=== PATIENT | female | born 1985 | race Caucasian/White ===

== ENCOUNTER 2017-10-21 05:01 | Inpatient (IN) | payer BC, OTHER ==
--- NOTE | 2017-10-17 22:47 | HP ---
Chief Complaint - Chief Complaint Date of Service: 10/07/17 Chief Complaint: Repeat C/S History of Present Illness: 31 yo IVF patient at 39 3/7wks with MAGAN of 10/25/17 at time of scheduled c/s on 10/21/17 presents for repeat C/S. This complicated by anemia and prior C/S (declines ). Rh positive Rubella immune GBS positive Medical History (Last Reviewed 10/17/17 @ 22:42 by Kenton Kang DO) Anemia affecting (Acute) Onset Date: 08/25/14 Surgical History: Surgical History (Last Reviewed 10/17/17 @ 22:42 by Kenton Kang DO) Previous section Onset Date: 11/21/14 History of tonsillectomy and adenoidectomy Onset Date: 1998 Family History: Family History (Last Reviewed 10/17/17 @ 22:42 by Kenton Kang DO) Mother Diabetes Father Alive and well Grandfather Polio Grandfather Hypertension Myocardial infarction Grandmother Lymphoma Grandmother Hypertension Social History: Preferred Language Irish Abuse History No History of abuse Psych History No pertinent hx Review Of Systems (GEN) - Review of Systems Generalized/Overall Review: Present: No Symptoms Reported EENTM: Present: No Symptoms Reported Respiratory: Present: No Symptoms Reported Cardiac: Present: No Symptoms Reported Abdominal: Present: No Symptoms Reported Genitourinary: Present: No Symptoms Reported Musculoskeletal: Present: No Symptoms Reported Neurological: Present: No Symptoms Reported Skin: Present: No Symptoms Reported Endocrine: Present: No Symptoms Reported Allergies/Adverse Reactions: Allergies Allergy/AdvReac Type Severity Reaction Status Date / Time Penicillins Allergy Mild Hives Verified 10/14/17 09:39 amoxicillin Allergy Hives Verified 10/14/17 09:39 Home Medications: HOME MEDICATIONS Ferrous Sulfate [Iron] 325 mg PO 11/20/14 [Last Taken 11/19/14] Vits96/Iron Fum/Folic [ S] 1 tab PO DAILY 11/20/14 [Last Taken 11/19/14] breast pump See Dose Instructions .ROUTE .MEDSUPPLY #1 ea 09/29/17 [Last Taken Unknown] Exam - Exam Vital Signs: Vitals from 10/14/17 Ht 1.56m Wt 81.8kg BP 124/76 P83 R16 O2 98% Constitutional: Present: Alert, Oriented x3, Cooperative, No distress ENT Exam: Present: hearing grossly normal Back Exam: Present: no CVA tenderness Breasts: Present: Exam deferred Respiratory: Present: lungs clear, no respiratory distress Cardiovascular/Chest: Present: regular rate, rhythm, edema - 1+ bilateral Lower extremities Abdomen: Present: soft, nontender, no rebound tenderness /Rectal: Present: Exam deferred Extremity: Present: non-tender, no calf tenderness, pedal edema Skin Exam: Present: normal color, warm/dry, no cyanosis Neurologic: Present: alert, normal mood/affect, oriented x 3 Appearance: Present: appropriate appearance, appropriate insight Eye contact: Present: cooperative, good eye contact, normal speech Thoughts: Present: normal thought pattern Assessment/Plan - Assessment/Plan (1) Previous delivery affecting , antepartum Assessment: r/b/a to repeat section reviewed with patient again. All questions answered. Will proceed with repeat c/s as scheduled. Problem: Acute
[2017-10-21] MEDS ORDERED: OXYTOCIN 20 UNITS in RINGER'S SOLUTION,LACTATED 1,000 ML IV ONE (06:00)
[2017-10-21] MEDS ORDERED: RINGER'S SOLUTION,LACTATED 1,000 ML IV PRN ×2 (06:00)
[2017-10-21] MEDS ORDERED: ceFAZolin SODIUM/DEXTROSE,ISO 2 GM/50 ML BAG IV PRN (06:00)
--- NOTE | 2017-10-21 07:49 | ANES ---
Anesthesia Pre Procedure Eval Vitals/Labs: Last Vital Signs Temp 36.7 C 10/21/17 05:54 Pulse 90 10/21/17 05:54 Resp 18 10/21/17 05:54 BP 119/79 10/21/17 05:54 HOME MEDICATIONS Ferrous Sulfate [Iron] 325 mg PO DAILY 11/20/14 [Last Taken 10/20/17] Vits96/Iron Fum/Folic [ S] 1 tab PO DAILY 11/20/14 [Last Taken 10/20/17] breast pump See Dose Instructions .ROUTE .MEDSUPPLY #1 ea 09/29/17 [Last Taken Unknown] Allergies/Adverse Reactions: Allergies Allergy/AdvReac Type Severity Reaction Status Date / Time Penicillins Allergy Mild Hives Verified 10/14/17 09:39 amoxicillin Allergy Hives Verified 10/14/17 09:39 - Planned Procedure Planned Procedure: Repeat Section, poss. Abdominal Scar Rev Medication List Reviewed:: Yes Allergies Verified: Yes Medical History (Last Reviewed 10/21/17 @ 07:48 by Hilario Webber CRNA) Anemia affecting (Acute) Onset Date: 08/25/14 Surgical History (Last Reviewed 10/21/17 @ 07:48 by Hilario Webber CRNA) Previous section Onset Date: 11/21/14 History of tonsillectomy and adenoidectomy Onset Date: 1998 Family History (Last Reviewed 10/21/17 @ 07:48 by Hilario Webber CRNA) Mother Diabetes Father Alive and well Grandfather Pol[place] Grandfather Hypertension Myocardial infarction Grandmother Lymphoma Grandmother Hypertension - Family Anesthesia History Family History:: no untoward family reactions to anesthesia, no familial bleeding tendencies, no family history of clotting disorders, no family history of premature - Airway/Neck/Teeth Within Normal Limits:: Yes Teeth Condition: Intact Mallampatti Score: 1 Thyromental (T-M) distance: > 6 cm Mandibulo Hyoid distance: > 3 cm - Respiratory Respiratory: lungs clear Discussed smoking cessation including day of surgery: No Sleep Apnea currently treated: No Sleep Apnea by current assessment: No Discussed Risks/Treatment of ONIEL: No - Cardiovascular Tolerates Activity: Good Heart Sounds: S1 & S2, Regular - Anesthesia Assessment and Plan ASA Class: PS, II Anesthesia Type Plan: Block - Bilateral TAP blocks for postop analgesia, Spinal
[2017-10-21] MEDS ORDERED: BISACODYL 10 MG SUPP.RECT RC PRN (09:15)
[2017-10-21] MEDS ORDERED: SIMETHICONE 80 MG TAB.CHEW PO PRN (09:15)
[2017-10-21] MEDS ORDERED: oxyCODONE HCL/ACETAMINOPHEN 1 TAB TABLET PO PRN (09:15)
[2017-10-21] MEDS ORDERED: SENNOSIDES 8.6 MG TABLET PO PRN (09:15)
[2017-10-21] MEDS ORDERED: ONDANSETRON HCL/PF 2 MG/ML VIAL IV PRN (09:15)
--- NOTE | 2017-10-21 09:17 | OR ---
Operative Report - Dictated Report Narrative: Indication: 31-year-old at 39-3/7 weeks with prior section desires repeat section status: Planned Pre Operative Diagnosis: 39-3/7 week intrauterine . Prior section. Post Operative Diagnosis: Same. Procedure: Repeat low transverse section. Surgeon: Amber Kang DO Automobile Locator: OR Staff Anesthesia: Spinal, TAP block Estimated Blood Loss: 600 mL Urine Output: 100 mL clear urine Fluids Replacement: 1000 mL Drains: Ventura to gravity Surgical Complications: None Specimens: Placenta to freezer Findings: Male born in cephalic presentation at 0816 on 10/21/2017 with Apgars 9 and 9, weighing 3717 g. Normal uterus, tubes, ovaries Technique: The patient was taken to the operating room and placed in dorsal supine position with a left lateral tilt. After adequate spinal anesthesia, ventura catheter inserted, SCDs placed, and 2 g of Ancef given preoperatively, the abdominal cavity was entered using sharp and blunt dissection. Two rolled laps were placed in the pericolic gutters on either side of the uterus. A transverse incision was made in the lower uterine segment and extended laterally and upwardly with digital traction. Clear fluid was noted upon amniotomy. The infant was delivered easily. The cord was clamped and cut and infant was handed off to awaiting printed circuit board panels developer. The placenta was allowed to deliver spontaneously. The uterus was cleared of clot and debris. Uterine incision was closed with 0 Vicryl using a running stitch. A second imbricating layer was placed. Excellent hemostasis was noted. The rolled laps were removed from the abdominal cavitiy. The peritoneum was closed with a running 3- 0 Monocryl. The same suture was used to approximate the rectus and pyramidalis muscles. The fascia was closed with a running 0 Vicryl. The subcutaneous layer was closed with a running 3-0 Monocryl. The same suture was used to approximate the subdermal layer. The skin was closed with a running 4-0 Monocryl and Dermabond. Sponge, lap, needle, and instrument count were correct x 2. Disposition: To post anesthesia care unit in good condition
--- NOTE | 2017-10-21 09:21 | ANES ---
Post Anesthesia Discharge - Transfer of Care Transfer of Care handoff given to nurse: Yes - Discharge from PACU Discharge from PACU when meets criteria: Yes - Discharge to ASU Discharge to ASU-no complications/pt stable: Yes
--- NOTE | 2017-10-21 09:22 | ANES ---
Anesthesia Procedure Note Procedure Note: ANESTHESIA PROCEDURE NOTE Date of Procedure: 10/21/2017. Time of procedure: 0910. Performed by: Hilario Webber CRNA Ecological Modeler: None. Preprocedure diagnosis: Repeat . Post procedure diagnosis: Same. Procedure: Bilateral ultrasound-guided transversus abdominis plane block for postop analgesia. Indications: The patient is a 31 -year-old female post section, requesting bilateral ultrasound-guided tap block for postoperative analgesia. Findings: See below. Details of the procedure: ChloraPrep was used on the patient's abdomen and the procedure was performed under sterile technique. The right abdominal fascial layer between the internal oblique muscle and the transversus abdominis muscles was identified under ultrasound guidance. A 21-gauge 4 inch block needle was inserted under ultrasound guidance to the target fascial plane. 15 mL's of 0.5 % bupivacaine plus epinephrine 1:200,000 was injected after negative aspiration for blood. The needle was removed intact and the procedure was then repeated at the left side. No complications were noted. The images were retained in the hospital medical database . EBL: Minimal. Fluids: N/A. Specimen: N/A. Post procedure condition: The patient tolerated the procedure well. No complications were noted. Thank you for this consultation. Hilario Webber CRNA
--- NOTE | 2017-10-21 09:35 | ANES ---
Post Anesthesia Assessment - Vital Signs Vitals: Last Vital Signs Temp 36.2 C 10/21/17 09:05 Pulse 89 10/21/17 09:20 Resp 16 10/21/17 09:20 BP 131/76 10/21/17 09:20 Pulse Ox 99 10/21/17 09:20 Airway Patency: Normal - Mental Status Level Of Consciousness: Awake - Pain Level Pain Score: 0 - N/V Assessment Nausea/Vomiting Presence: None Dehydration:: No
[2017-10-21] MEDS: IBUPROFEN 800 MG TABLET PO PRN ×2 (10:56→18:03)
[2017-10-21] MEDS: oxyCODONE HCL/ACETAMINOPHEN 1 TAB TABLET PO PRN ×3 (10:57→22:14)
[2017-10-21] MEDS: ENOXAPARIN SODIUM 40 MG/0.4 ML SYRG SC SCH (17:17)
[2017-10-21] MEDS: DOCUSATE SODIUM 100 MG CAPSULE PO SCH (20:25)
[2017-10-22] MEDS: IBUPROFEN 800 MG TABLET PO PRN ×3 (06:24→21:51)
[2017-10-22] MEDS: oxyCODONE HCL/ACETAMINOPHEN 1 TAB TABLET PO PRN ×3 (06:24→21:51)
[2017-10-22] MEDS: PRENATAL VITS96/IRON FUM/FOLIC 1 TAB TABLET PO SCH (09:43)
[2017-10-22] MEDS: FERROUS SULFATE 325 MG TABLET PO SCH (09:43)
[2017-10-22] MEDS: DOCUSATE SODIUM 100 MG CAPSULE PO SCH ×2 (09:43→21:08)
--- NOTE | 2017-10-22 10:32 | PN ---
Subjective - Date and Time Seen Date: 10/22/17 Time: 10:32 Objective - Vitals Vitals: Last Vital Signs Temp 36.6 C 10/22/17 08:18 Pulse 72 10/22/17 08:18 Resp 18 10/22/17 08:18 BP 115/80 10/22/17 08:18 Pulse Ox 96 10/22/17 08:18 Patient denies complaints. Tolerating regular diet. Ambulating without difficulty. Pain well controlled. Lochia wnl. Abdomen - soft, appropriately tender Incision - clean, dry, intact Uterus - firm, at umbilicus -1 No calf tenderness Impression: Post op day #1 s/p repeat section. Plan: Continue routine post-operative/ care Cauti Physician Documentation - Urinary Catheter Management 2-way Urethral Date of Insertion: 10/21/17 Time of Insertion: 08:00 Assessment/Plan - Problems/Diagnosis (1) Previous delivery affecting , antepartum Problem: Acute
[2017-10-22] MEDS: ENOXAPARIN SODIUM 40 MG/0.4 ML SYRG SC SCH (18:11)
[2017-10-23] MEDS: oxyCODONE HCL/ACETAMINOPHEN 1 TAB TABLET PO PRN ×2 (06:38→16:20)
[2017-10-23] MEDS: IBUPROFEN 800 MG TABLET PO PRN ×2 (06:38→16:21)
[2017-10-23] MEDS: FERROUS SULFATE 325 MG TABLET PO SCH (08:56)
[2017-10-23] MEDS: PRENATAL VITS96/IRON FUM/FOLIC 1 TAB TABLET PO SCH (08:56)
[2017-10-23] MEDS: DOCUSATE SODIUM 100 MG CAPSULE PO SCH (08:56)
--- NOTE | 2017-10-23 09:06 | PN ---
Subjective - Date and Time Seen Date: 10/23/17 Time: 09:06 Objective - Vitals Vitals: Last Vital Signs Temp 36.7 C 10/23/17 06:30 Pulse 78 10/23/17 06:30 Resp 18 10/23/17 06:30 BP 127/70 10/23/17 06:30 Pulse Ox 100 10/23/17 06:30 Patient denies complaints. Ambulating well. Tolerating regular diet. Pain well controlled. Lochia wnl. Abdomen - soft, appropriately tender Incision - clean, dry, intact Uterus - firm, at umbilicus -2 No calf tenderness Impression: Post op day #2 s/p repeat section. Plan: Continue routine post-operative/ care Cauti Physician Documentation - Urinary Catheter Management 2-way Urethral Date of Insertion: 10/21/17 Time of Insertion: 08:00 Assessment/Plan - Problems/Diagnosis (1) Previous delivery affecting , antepartum Problem: Acute
[2017-10-23] MEDS: ENOXAPARIN SODIUM 40 MG/0.4 ML SYRG SC SCH (16:21)
[2017-10-23] MEDS ORDERED: [UNRECOGNIZED DRUG - OTHER] SCH (18:30)
[2017-10-23] MEDS ORDERED: BREAST PUMP SCH (18:30)
[2017-10-24] MEDS: IBUPROFEN 800 MG TABLET PO PRN ×2 (01:10→07:19)
[2017-10-24] MEDS: oxyCODONE HCL/ACETAMINOPHEN 1 TAB TABLET PO PRN (01:11)
[2017-10-24] MEDS: DOCUSATE SODIUM 100 MG CAPSULE PO SCH ×2 (01:11→08:30)
[2017-10-24] MEDS: PRENATAL VITS96/IRON FUM/FOLIC 1 TAB TABLET PO SCH (08:30)
[2017-10-24] MEDS: FERROUS SULFATE 325 MG TABLET PO SCH (08:30)
--- NOTE | 2017-10-24 10:45 | PN ---
Subjective - Date and Time Seen Date: 10/24/17 Time: 10:44 Objective - Vitals Vitals: Last Vital Signs Temp 36.8 C 10/24/17 06:15 Pulse 82 10/24/17 06:15 Resp 18 10/24/17 06:15 BP 128/84 10/24/17 06:15 Pulse Ox 98 10/24/17 06:15 Patient denies complaints. Ambulating without difficulty. Tolerating regular diet. Pain well controlled. Lochia wnl. Abdomen - soft, appropriately tender Incision - clean, dry, intact Uterus - firm, at umbilicus -3 No calf tenderness Impression: Post op day #3 s/p repeat section. Plan: Routine discharge instructions Cauti Physician Documentation - Urinary Catheter Management 2-way Urethral Date of Insertion: 10/21/17 Time of Insertion: 08:00 Assessment/Plan - Problems/Diagnosis (1) Previous delivery affecting , antepartum Problem: Acute
[2017-10-24 12:02] VITALS: BP 122/80
== END 2017-10-24 12:00 | disposition home or self-care (01) | DRG 766 ==
LOC: MS 05:01
PROVIDERS: ADMIT Obstetrics & Gynecology; ATTEND Obstetrics & Gynecology
CPT/HCPCS: 59025